=== PATIENT | female | born 1960 | race Caucasian/White ===

== ENCOUNTER 2019-08-26 09:00 | Emergency (ER) | payer OTHER, SELFPAY ==
--- NOTE | ~2019-08-26 | XR_ITS ---
EXAMINATION: XR chest 2V EXAM DATE: 08/26/2019 09:37 INDICATION: Cough for 5 days. TECHNIQUE: Frontal and lateral projections of the chest obtained and reviewed. There is no prior nhung dy for comparison. FINDINGS: The lungs are clear. There are no pleural effusions. The cardiomediastinal silhouette is within normal limits. There is no pneumothorax suspected. Patient has diffuse idiopathic skeletal h yperostosis (DISH). IMPRESSION: No acute cardiopulmonary findings. Reviewed, dictated and finalized at location A. [employer]OR OPERATOR
[2019-08-26 09:17] VITALS: BP 147/86; PULSE 79; RESP 16; TEMP 37.2; O2SAT 98
--- NOTE | 2019-08-26 09:25 | ED.URI ---
HPI - URI/Sore Throat General Stated Complaint: Cough/Chest pain/Sinus Time Seen by Provider: 08/26/19 09:25 Source: patient Mode of arrival: ambulatory Limitations: no limitations History of Present Illness HPI Narrative: Chen Figueroa is a 58 yo female with a PMH of hep C, liver cirrhosis, hypertension, encephalopathy, who comes to express care for cough of 5 days with sinus issues. States her left lung is hurting because of all the coughing Related Data Home Medications Medication Instructions Recorded Confirmed lactulose 08/26/19 lisinopril 10 mg PO DAILY 08/26/19 08/26/19 Allergies Allergy/AdvReac Type Severity Reaction Status Date / Time meperidine [From Demerol] Allergy Rash Verified 08/26/19 09:26 Review of Systems Review of Systems: Narrative: CONSTITUTIONAL: Denies fever, chills, sweats. EYES: Denies visual changes, redness, discharge. ENT: Has rhinorrhea, congestion, sore throat, no otalgia. CARDIOVASCULAR: L sided chest pain, palpitations, edema. RESPIRATORY: Denies dyspnea, wheezing, dry cough GASTROINTESTINAL: Denies abdominal pain, nausea, vomiting, diarrhea. GENITOURINARY: Denies dysuria, hematuria, abnormal discharge SKIN: Denies rash or itching. MUSCULOSKELETAL: Denies acute back pain, joint pain, or myalgia. NEUROLOGIC: Denies numbness, or focal weakness. PSYCHIATRIC: Denies anxiety or depression. PMFSH Comments At time of signature, I agree with nursing past medical, surgical, social and family history. There is no relevant family history pertinent to the presenting complaint. Exam Narrative: Exam Narrative: GENERAL: This is a well-nourished, well-developed patient, in moderate distress. HEAD: normocephalic, atraumatic. EYES: PERRL. Sclera clear/white. Vision is grossly intact. EARS: External ears normal, Hearing grossly intact. NOSE: External nose normal with no obvious nasal discharge, nares without redness, no rhinorrhea. THROAT: Mucous membranes moist, posterior pharynx erythema NECK: Neck supple, non-tender CARDIOVASCULAR: Regular rate and rhythm without murmurs, gallops, or rubs. RESPIRATORY: Clear to auscultation. Breath sounds equal bilaterally. No wheezes, rales, or rhonchi. GASTROINTESTINAL: Abdomen soft, non-tender, distended. Bowel sounds are active. No hepato-splenomegaly, or palpable masses. No guarding. SKIN: warm, intact with no suspicious lesions or rash, good texture and turgor. NEURO: awake, alert, and oriented to person, place and time. There were no obvious focal neurologic abnormalities. Steady gait EXTREMITIES: Normal range of motion. No edema. No calf tenderness. Negative Homans sign bilaterally. BACK: Nontender without deformity or crepitance. No flank tenderness. Course Course Emergency Course: Chest x-ray Vital Signs Vital signs: Vital Signs Temperature 98.9 F 08/26/19 09:17 Pulse Rate 79 08/26/19 09:17 Respiratory Rate 16 08/26/19 09:17 Blood Pressure 147/86 H 08/26/19 09:17 Pulse Oximetry 98 08/26/19 09:17 Temperature 98.9 F 08/26/19 09:17 Pulse Rate 79 08/26/19 09:17 Respiratory Rate 16 08/26/19 09:17 Blood Pressure 147/86 H 08/26/19 09:17 Pulse Oximetry 98 08/26/19 09:17 MDM - URI/Sore Throat Differential Diagnosis Differential diagnosis: Likely upper respiratory infection, bronchitis and other Discharge Plan Discharge Patient Disposition: Home, Self-Care Condition: Stable Instructions: Antibiotic Form, Acute Bronchitis (ED) Prescriptions: No Action lisinopril 10 mg Tablet 10 mg PO DAILY RF: 0 lactulose 20 gram Packet RF: 0 Follow-up/Referrals: Ruben,Charanjit Oliveira MD [Primary Care Provider] -
--- NOTE | 2019-08-26 09:51 | ED.URI ---
HPI - URI/Sore Throat General Chief Complaint: Upper Respiratory Infection Stated Complaint: Cough/Chest pain/Sinus Time Seen by Provider: 08/26/19 09:25 Source: patient Mode of arrival: ambulatory Limitations: no limitations History of Present Illness HPI Narrative: Chen Figueroa is a 58 yo female with a PMH of HUBER, liver cirrhosis, HTN, who comes to [facility] care for 5 days of cough. No fever. Taken OTC meds with no improvement Related Data Home Medications Medication Instructions Recorded Confirmed lactulose 08/26/19 lisinopril 10 mg PO DAILY 08/26/19 08/26/19 Allergies Allergy/AdvReac Type Severity Reaction Status Date / Time meperidine [From Demerol] Allergy Rash Verified 08/26/19 09:26 Review of Systems Review of Systems: Narrative: CONSTITUTIONAL: Denies fever, chills, sweats. EYES: Denies visual changes, redness, discharge. ENT: has rhinorrhea, congestion, sore throat, no otalgia. CARDIOVASCULAR:Left chest wall pain, palpitations, edema. RESPIRATORY: Denies dyspnea, wheezing, dry cough GASTROINTESTINAL: Denies abdominal pain, nausea, vomiting, diarrhea. GENITOURINARY: Denies dysuria, hematuria, abnormal discharge SKIN: Denies rash or itching. MUSCULOSKELETAL: Denies acute back pain, joint pain, or myalgia. NEUROLOGIC: Denies numbness, or focal weakness. PSYCHIATRIC: Denies anxiety or depression. [facility] Family History Family History (Updated 08/26/19 @ 09:57 by Pat Hdez CNP) Other Hypertension Smoking Social History Social History (Updated 08/26/19 @ 09:57 by Pat Hdez CNP) Second hand tobacco smoke exposure: Yes Alcohol intake: never Comments At time of signature, I agree with nursing past medical, surgical, social and family history. There is no relevant family history pertinent to the presenting complaint. Exam Narrative: Exam Narrative: GENERAL: This is a well-nourished, well-developed patient, in no apparent distress. HEAD: normocephalic, atraumatic. EYES: PERRL. Sclera clear/white. Vision is grossly intact. EARS: External ears normal, auditory canals clear and without drainage, TMs normal without perforation. Hearing grossly intact. NOSE: External nose normal with no obvious nasal discharge, nares with redness, mild rhinorrhea. THROAT: Mucous membranes moist, posterior pharynx erythema NECK: Neck supple, non-tender without lymphadenopathy, masses or thyromegaly. CARDIOVASCULAR: Regular rate and rhythm without murmurs, gallops, or rubs. RESPIRATORY: Coarse to auscultation. Breath sounds equal bilaterally. No wheezes, rales, or rhonchi. GASTROINTESTINAL: Abdomen soft, non-tender, nondistended. Bowel sounds are active. No hepato-splenomegaly, or palpable masses. No guarding. SKIN: warm, intact with no suspicious lesions or rash, good texture and turgor. NEURO: awake, alert, and oriented to person, place and time. There were no obvious focal neurologic abnormalities. Steady gait EXTREMITIES: Normal range of motion. No edema. No calf tenderness. Negative Homans sign bilaterally. BACK: Nontender without deformity or crepitance. No flank tenderness. Course Vital Signs Vital signs: Vital Signs Temperature 98.9 F 08/26/19 09:17 Pulse Rate 79 08/26/19 09:17 Respiratory Rate 16 08/26/19 09:17 Blood Pressure 147/86 H 08/26/19 09:17 Pulse Oximetry 98 08/26/19 09:17 Temperature 98.9 F 08/26/19 09:17 Pulse Rate 79 08/26/19 09:17 Respiratory Rate 16 08/26/19 09:17 Blood Pressure 147/86 H 08/26/19 09:17 Pulse Oximetry 98 08/26/19 09:17 MDM - URI/Sore Throat MDM Narrative Medical decision making narrative: Chest [id number] for acute pathology Started on prednisone and codeine cough syrup Discharge Plan Discharge Clinical Impression: Bronchitis Patient Disposition: Home, Self-Care Condition: Stable Instructions: Antibiotic Form, Acute Bronchitis (ED) Prescriptions: New prednisone 20 mg tablet 40 mg PO
== END 2019-08-26 10:16 | disposition home or self-care (01) ==
PROVIDERS: Emergency Provider Nurse Practitioner; PCP Emergency Medicine
DX: J40 Bronchitis, not specified as acute or chronic (principal); K75.81 Nonalcoholic steatohepatitis (NASH); K74.60 Unspecified cirrhosis of liver; I10 Essential (primary) hypertension
CPT/HCPCS: 71046; 99203; G0463